=== PATIENT | female | born 1980 | race African-American/Black ===

== ENCOUNTER 2022-06-27 16:59 | Emergency (ER) | payer OTHER ==
[~2022-06-27] VITALS: Ht 167.6 cm; Wt 97.5 kg
[2022-06-27] MEDS ORDERED: IBUPROFEN 400 MG TAB PO STA (17:21)
[2022-06-27] MEDS ORDERED: CEFDINIR300 MG PO (17:24)
[2022-06-27] MEDS ORDERED: BENZONATATE200 MG PO (17:24)
[2022-06-27] MEDS ORDERED: IBUPROFEN 400 MG TAB ONE (17:39)
== END 2022-06-27 17:31 | disposition home or self-care (01) ==
LOC: FSED 17:16
DX: R50.9 Fever, unspecified (principal); J01.90 Acute sinusitis, unspecified; R05.9 Cough, unspecified
CPT/HCPCS: 99282

== ENCOUNTER 2022-08-24 14:08 | Emergency (ER) | payer OTHER ==
[~2022-08-24] VITALS: Ht 167.6 cm; Wt 86.2 kg
[~2022-08-24 14:08] MED LIST: BENZONATATE200 MG PO; CEFDINIR300 MG PO
[2022-08-24] MEDS ORDERED: MELOXICAM7.5 MG PO (15:29)
[2022-08-24] MEDS ORDERED: CYCLOBENZAPRINE5 MG PO (15:29)
== END 2022-08-24 15:39 | disposition home or self-care (01) ==
LOC: FSED 14:14
DX: R07.89 Other chest pain (principal)
CPT/HCPCS: 71045; 99283